=== PATIENT | male | born 1995 | race Two or more races ===

== ENCOUNTER 2017-12-06 20:06 | Inpatient (IN) | payer MEDICAID, OTHER ==
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
[2017-12-06 21:15] LABS: BASO # 0.1 K/uL (0.0-0.2); BASO % 1.2 % (0.0-2.0); EOS % 0.2 % (0.0-4.0); HEMOGLOBIN 12.6 g/dL (12.0-18.0); LYMPH # 1.6 K/uL (1.0-4.3); MEAN CELL VOLUME 76.5 fL (80.0-94.0); MEAN CORPUSCULAR HEMOGLOBIN 25.2 pg (27.0-31.0); MEAN PLATELET VOLUME 7.3 fL (7.2-11.7); MONO # 0.5 K/uL (0.0-0.8); MONO % 10.2 % (0.0-10.0); NEUT # 2.9 K/uL (1.8-7.0); NEUT % 57.4 % (50.0-75.0); NRBC % 0.1 % (0.0-2.0); RED CELL DISTRIBUTION WIDTH 15.4 % (11.5-14.5); WHITE BLOOD COUNT 5.1 K/uL (4.8-10.8)
[2017-12-06 21:22] LABS: URINE BILIRUBIN NEGATIVE (NEGATIVE); URINE BLOOD 1+ (NEGATIVE); URINE CLARITY Clear (Clear); URINE COLOR Yellow (YELLOW); URINE GLUCOSE (UA) NORMAL (Normal); URINE LEUKOCYTE ESTERASE NEG Leu/uL (Negative); URINE PROTEIN NEGATIVE (NEGATIVE); URINE UROBILINOGEN NORMAL mg/dL (0.2-1.0)
[2017-12-06 21:32] LABS: ALB/GLOB RATIO 1.7 (1.0-2.1); ALT/SGPT 26 U/L (21-72); AST/SGOT 34 U/L (17-59); BLOOD UREA NITROGEN 7 mg/dL (9-20); CALCIUM 8.9 mg/dl (8.6-10.4); GFR NON-AFRICAN AMERICAN > 60
[2017-12-06 21:41] LABS: BARBITURATES, UR NEGATIVE (NEGATIVE); OPIATES, UR NEGATIVE (NEGATIVE); PHENCYCLIDINE, UR NEGATIVE (NEGATIVE)
[2017-12-06 22:07] LABS: BENZODIAZEPINES, UR POSITIVE (NEGATIVE)
[2017-12-06 22:48] VITALS: RESP 20; O2SAT 100
--- NOTE | 2017-12-07 00:16 | PCM.BM ---
<Clark Garnett - Last Filed: 12/07/17 00:13> Treatment Plan Problems - Problems identified on initial assessmt DEPRESSION/ ANXIETY Date Initiated: 12/06/17 Time Initiated: 23:00 Assessment reference: NA Status: Active HOMICIDAL IDEATION Date Initiated: 12/06/17 Time Initiated: 23:00 Assessment reference: NA Status: Active Treatment assets and liabiliti Patient Assests: cooperative, self-reliant, ADL independent, physically healthy , negotiates basic needs Patient Liabilities: financial problems, poor support system, relationship conflicts, substance abuse - Milieu Protocol Maintain good personal hygiene: daily Encourage regular showers, daily Remind patient to perform daily oral care, daily Assist patient to perform ADL's Maintain personal safety: every shift Educate patient to report safety concerns to staff, every shift Monitor environment for contraband/sharps Medication safety: Monitor for expected outcome, potential side effects: every shift, Assess barriers to learning: every shift, Assess readiness for medication education: every shift <Aldair Lino - Last Filed: 12/08/17 11:40> - Diagnosis (1) Bipolar disorder, current episode depressed, severe, without psychotic features Status: Acute Interventions: 12/08/17 11:40 * Assess/adjust medications daily and /or as needed * See patient on an individual basis 7x/week to assess level of manic behaviors and stability * Discuss risks, benefits, side effects and alternatives of medications * <Soha Villalta - Last Filed: 12/08/17 13:30> Family Contact Family involvement: Famliy/SO not involved - Goals for Treatment Patient goals for treatment: "I need to go home. I have a job interview." Discharge/Continuing Care - Education Needs Education Needs: Patient Medication, Patient Coping Skills - Discharge Discharge Criteria: Tolerates medication w/o severe side effects, Reduction of target symptoms Discharge to:: Home - Treatment Team Participation Discussed with Family/SO: No Was Patient/Family/SO present at Treatment Team Meeting: Yes
[2017-12-07] MEDS: Pantoprazole 40 mg EC Tab PO SCH ×2 (10:25→17:08)
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
[2017-12-08] MEDS: Pantoprazole 40 mg EC Tab PO SCH ×2 (09:07→17:43)
[2017-12-08] MEDS ORDERED: Pneumococcal 23-Valent Vaccine IM ONE (10:30)
[2017-12-08] MEDS: Multiple Vitamins Tab PO SCH (10:47)
--- NOTE | 2017-12-08 12:37 | PCM.PYCHPN ---
Psychiatric Progress Note - Psychiatric Progress Note Patient seen today, length of contact: 15 min Patient Chief Complaint: "Anxiety, depression, anger" Problems Identified/Issues Discussed: Patient seen and evaluated, chart reviewed and discussed with the nurse. Pt reports depressed mood, and reports reports irritability and agitation. He remained isolated and withdrawn, and confined to his room. Patient denies any withdrawal symptoms. He reports improvement in the hallucinations, and paranoia. Patient is compliant with medications and denies any side effects. Symptoms are improving but pt needs more time to stabilize. Support and psychoeducation given. Medication Change: Yes Medical Record Reviewed: Yes Mental Status Examination - Cognitive Function Orientation: Person, Place, Situation, Time Memory: Intact Attention: WNL Concentration: Poor Association: WNL Fund of Knowledge: Poor - Mood Mood: Depressed - Affect Affect: Broad, Depressed - Speech Speech: Appropriate - Formal Thought Process Formal Thought Process: Hallucinations, Delusions - Suicidal Ideation Suicidal Ideation: No - Homicidal Ideation Homicidal Ideation: No Goal/Treatment Plan - Goal/Treatment Plan Need for Continued Stay: Severe depression anxiety, Severe functional impairment Progress Toward Problem(s) and Goals/Treatment Plan: Bipolar disorder depressed severe with psychosis' Sedative, hypnotic, 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 Attend groups and activities Individual therapy daily Psychoeducation and support daily Encourage compliance with meds and after care Refer to outpatient program Teach healthy lifestyle methods, i.e. diet, exercise, meditation Smoking cessation and patch if needed - Smoking Cessation Smoking Cessation Initiated: No
[2017-12-09 06:49] VITALS: BP 130/84; PULSE 63; TEMP 97.4
--- NOTE | 2017-12-09 09:42 | PCM.PYCHDC ---
Mental Status Examination - Mental Status Examination Orientation: Person Discharge Summary - Discharge Note Consultations:: List each consultation separately and include: 1. Reason for request. 2. Findings. 3. Follow-up Summary of Hospital Course include:: 1. Description of specific treatment plan utilized for patients during their course of treatmen. 2. Summarize the time- course for resolution of acute symptoms and/or regressed behaviors. 3. Describe issues identified and worked on during hospitalization. 4. Describe medication utilized. 5. Describe medical problems identified and treated. 6. Reassessment of suicide risk Summary of Hospital Course: He will go to [facility]. He left a little early - risks discussed, he understood. He will also get a Li level - Final Diagnosis (DSM 5) Condition upon Discharge: IMPROVED Disposition: HOME/ ROUTINE Prescriptions/Medication Reconciliation: Gabapentin [Neurontin] 300 mg PO BID #60 cap hydrOXYzine HCl [Atarax] 25 mg PO DAILY #30 tab [place] Carbonate [[place] Carbonate 300MG] 300 mg PO TID #90 cap Mirtazapine [Remeron] 15 mg PO HS #30 tab Pantoprazole [Protonix EC Tab] 40 mg PO DAILY #30 ect
[2017-12-09] MEDS: Pantoprazole 40 mg EC Tab PO SCH (09:54)
[2017-12-09] MEDS: Multiple Vitamins Tab PO SCH (09:54)
== END 2017-12-09 11:05 | disposition home or self-care (01) | DRG 430 ==
LOC: SUPCPDRO 20:06 → C.ER 20:06 → C.5E 22:21
PROVIDERS: ADMIT Psychiatry & Neurology Psychiatry; ATTEND Psychiatry & Neurology Psychiatry
PROC: GZ3ZZZZ Medication Management (ICD-10-PCS; principal; 2017-12-06)
PROC: GZHZZZZ Group Psychotherapy (ICD-10-PCS; 2017-12-06)
PROC: GZ56ZZZ Individual Psychotherapy, Supportive (ICD-10-PCS; 2017-12-06)
PROC: HZ80ZZZ Medication Management for Substance Abuse Treatment, Nicotine Replacement (ICD-10-PCS; 2017-12-06)
DX: F31.5 Bipolar disorder, current episode depressed, severe, with psychotic features (principal); F13.10 Sedative, hypnotic or anxiolytic abuse, uncomplicated; F10.10 Alcohol abuse, uncomplicated; F17.210 Nicotine dependence, cigarettes, uncomplicated; R45.850 Homicidal ideations; G47.00 Insomnia, unspecified; F41.0 Panic disorder [episodic paroxysmal anxiety]; F32.1 Major depressive disorder, single episode, moderate; Z81.8 Family history of other mental and behavioral disorders